=== PATIENT | male | born 1945 | race Caucasian/White ===

== ENCOUNTER 2017-03-20 09:09 | Outpatient (CLI) | payer BC ==
[2017-03-20] MEDS ORDERED: GASTROGRAFIN 120 ML ONE (09:30)
== END 2017-03-20 17:51 | disposition home or self-care (01) ==
LOC: SRD 09:09
PROVIDERS: ATTEND Colon & Rectal Surgery
DX: K57.30 Diverticulosis of large intestine without perforation or abscess without bleeding (principal)
CPT/HCPCS: 74270; Q9963